=== PATIENT | female | born 1940 | race Caucasian/White ===

== ENCOUNTER 2018-08-16 11:29 | Inpatient (IN) | payer OTHER ==
[~2018-08-16 11:29] MED LIST: TRANEXAMIC ACID 1,000 MG in NS 100 ML IV ONE
[2018-08-16] MEDS ORDERED: BUPIVACAINE 0.25% 30 ML SDV ONE (11:38)
[2018-08-16] MEDS ORDERED: CHLORHEXIDINE GLUC HIBICLENS 118 ML BTL TP ONE (11:38)
[2018-08-16] MEDS ORDERED: THROMBIN (BOVINE) 5,000 UNIT VIAL TP ONE (11:39)
[2018-08-16] MEDS ORDERED: EPINEPHrine 1 MG/ML INJ ONE (11:39)
[2018-08-16] MEDS ORDERED: CITRATE DEXTROSE SOLN 500 ML BAG ONE (11:39)
[2018-08-16] MEDS ORDERED: BACITRACIN 50,000 UNITS/10 ML SYR IRR ONE (11:39)
[2018-08-16] MEDS ORDERED: morphINE PF 0.2 MG in SYRINGE INTRATHECAL 1 SYR IT ONE (11:50)
[2018-08-16] MEDS ORDERED: ACETAMINOPHEN 500 MG TAB PO ONE (11:50)
[2018-08-16] MEDS ORDERED: ceFAZolin 2 GM/DEXTROSE 100 ML IV ONE (11:50)
[2018-08-16] MEDS ORDERED: GABAPENTIN 300 MG CAP PO ONE (11:50)
[2018-08-16] MEDS ORDERED: fentaNYL 50 MCG in SYRINGE INTRATHECAL 1 SYR IT ONE (11:50)
[2018-08-16] MEDS ORDERED: LR 1,000 ML IV ONE (11:56)
[2018-08-16] MEDS ORDERED: LIDOCAINE 1% 2 ML INJ ID PRN (11:56)
--- NOTE | 2018-08-16 12:54 | PDANEPAE ---
ANE History of Present Illness L3-L5 TLIF ANE Past Medical History - Cardiovascular History Hx Hypertension: No Hx Arrhythmias: No Hx Chest Pain: No Hx Coronary Artery / Peripheral Vascular Disease: No Hx CHF / Valvular Disease: No Hx Palpitations: No - Pulmonary History Hx COPD: No Hx Asthma/Reactive Airway Disease: Yes Hx Recent Upper Respiratory Infection: No Hx Oxygen in Use at Home: No Hx Sleep Apnea: No Sleep Apnea Screening Result - Last Documented: Negative Pulmonary History Comment: hasn't used inhaler in a long time- instructed pt to bring to hospital. 08/03- pt called back and has had cough at night so doctor restarted her flovent inhaler, it is added to medication list - Neurologic History Hx Cerebrovascular Accident: No Hx Seizures: No Hx Dementia: No - Endocrine History Hx Diabetes: No Endocrine History Comment: hypothyroidism - Renal History Hx Renal Disorders: Yes Renal History Comment: frequent uti's- last one in march 2018 - Liver History Hx Hepatic Disorders: No - Neurological & Psychiatric Hx Hx Neurological and Psychiatric Disorders: No - Cancer History Hx Cancer: Yes Cancer History Comment: skin - Congenital Disorder History Hx Congenital Disorders: No - GI History Hx Gastrointestinal Disorders: Yes Gastrointestinal History Comment: reflux - Other Health History Other Health History: wears glasses. dental implants. frontal alopecia - Chronic Pain History Chronic Pain: Yes (lower back sciatic pain) - Surgical History Prior Surgeries: sinus surgery 04/2018. bilateral TKA's 10 yrs ago. alvin 2013. moh's surgery 2014. dental implants. breast biopsy ANE Review of Systems Review of Systems: - Exercise capacity METS (RN): 4 METS ANE Patient History - Allergies Allergies/Adverse Reactions: ciprofloxacin Allergy (Verified 07/20/18 10:05) Rash Penicillins Allergy (Verified 07/20/18 10:05) Rash Sulfa (Sulfonamide Antibiotics) Allergy (Verified 07/20/18 10:05) Itching - Home Medications Home Medications: Albuterol [Proventil Inhaler HFA (*)] 1 - 2 puffs IH Q4H PRN 07/20/18 [Last Taken 2 Weeks Ago ~08/02/18] Aspirin [Aspirin 81mg (*)] 81 mg PO DAILY 07/20/18 [Last Taken 08/08/18] Cholecalciferol Vit D3 [Vitamin D3 (*)] 1,000 units PO DAILY 07/20/18 [Last Taken 1 Day Ago ~08/15/18] Fexofenadine HCl [Faviola Allergy] 180 mg PO DAILY 07/20/18 [Last Taken 1 Day Ago ~08/15/18] Herbals/Supplements -Info Only 1 ea PO DAILY 07/20/18 [Last Taken 1 Day Ago ~] Levothyroxine [Synthroid 75 mcg (*)] 75 mcg PO DAILY06 07/20/18 [Last Taken 12/03 04:00] Mirtazapine 7.5 mg PO HS 07/20/18 [Last Taken 1 Day Ago ~08/15/18] Montelukast Sodium [Singulair 10 mg (*)] 10 mg PO HS 07/20/18 [Last Taken 1 Day Ago ~08/15/18] Omeprazole 40 mg PO DAILY 07/20/18 [Last Taken 08/16/18 05:30] Fluticasone Hfa 220 Mcg [Flovent 220 MCG Hfa MDI (*)] 1 puffs IH BID 08/09/18 [ Last Taken 08/16/18 07:30] - NPO status NPO Status: no food or drink >8 hours NPO Since - Liquids (Date): 08/16/18 NPO Since - Liquids (Time): 09:45 NPO Since - Solids (Date): 08/15/18 NPO Since - Solids (Time): 20:00 - Anes Hx Anes Hx: no prior problems - Smoking Hx Smoking Status: Never smoked - Alcohol Use Alcohol Use: None - Family Anes Hx Family Anes Hx: none Family Hx Anesthesia Complications: none ANE Labs/Vital Signs - Vital Signs Blood Pressure: 148/85 Heart Rate: 73 Respiratory Rate: 16 O2 Sat (%): 97 Height: 162.56 cm Weight: 61.235 kg ANE Physical Exam - Airway Neck exam: FROM Mallampati Score: Class 2 Mouth exam: normal dental/mouth exam - Pulmonary Pulmonary: no respiratory distress, clear to auscultation - Cardiovascular Cardiovascular: regular rate and rhythym, no murmur, rub, or gallop - ASA Status ASA Status: III ANE Anesthesia Plan Anesthesia Plan: general endotracheal anesthesia Lines/Monitors: arterial line, additional IV Total IV Anesthesia: Yes
[2018-08-16] MEDS ORDERED: MIDAZOLAM 2 MG/2 ML VIAL IVP ONE (12:55)
[2018-08-16] MEDS ORDERED: PROPOFOL 200 MG/20 ML VIAL ONE (13:22)
[2018-08-16] MEDS ORDERED: PROPOFOL/EMULSION 500 MG/50 ML BOTTLE IV ONE (13:22)
[2018-08-16] MEDS ORDERED: fentaNYL 100 MCG/2 ML INJ ONE ×2 (13:22→17:44)
[2018-08-16] MEDS ORDERED: REMIFENTANIL HCL 1 MG VIAL ONE (13:22)
[2018-08-16] MEDS ORDERED: LIDOCAINE 2% 100 MG/5 ML SYR ONE (13:24)
[2018-08-16] MEDS ORDERED: ROCURONIUM 50 MG/5 ML VIAL ONE (13:24)
--- NOTE | 2018-08-16 14:10 | PDHPUP ---
History & Physical Update H&P update statement: This history and physical update is based on an assessment of the patient which was completed after admission or registration (within 24 hours), but prior to the surgery/procedure. H&P update: H&P reviewed & patient examined, no change in patient's condition since H&P completed
[2018-08-16] MEDS ORDERED: ONDANSETRON 4 MG/2 ML VIAL ONE ×2 (16:22→18:45)
[2018-08-16] MEDS ORDERED: DEXAMETHASONE 4 MG/ML VIAL ONE (16:22)
[2018-08-16] MEDS ORDERED: HYDROmorphONE/DILAUDID 2 MG/ML INJ IVP PRN (17:55)
[2018-08-16] MEDS ORDERED: HYDROCODONE/APAP 5/325 TAB PO PRN (17:55)
[2018-08-16] MEDS ORDERED: fentaNYL 100 MCG/2 ML INJ IVP PRN (17:55)
[2018-08-16] MEDS ORDERED: NALOXONE HCL 0.4 MG/ML INJ IVP PRN ×2 (17:55→17:58)
[2018-08-16] MEDS ORDERED: ONDANSETRON 4 MG/2 ML VIAL IVP PRN ×2 (17:55→17:58)
[2018-08-16] MEDS ORDERED: ACETAMINOPHEN 500 MG TAB PO PRN (17:55)
[2018-08-16] MEDS ORDERED: oxyCODONE IR 5 MG TAB PO PRN (17:55)
--- NOTE | 2018-08-16 17:55 | POSTANESTH ---
Post Anesthetic Evaluation Cardiovascular Status: Normal, Stable, Similar to Pre-Op Cond Respiratory Status: Normal, Stable, Similar to Pre-op Cond. Level of Consciousness/Mental Status: Can Participate in Eval, Alert and Oriented Pain Control: Adequate, Prn Tx Ordered Nausea/Vomiting Control: Adequate, Prn Tx Ordered Complications Possibly Related to Anesthesia: None Noted
[2018-08-16] MEDS ORDERED: ALBUTEROL 60 PUFFS/8 GM MDI IH PRN (17:56)
[2018-08-16] MEDS ORDERED: MAGNESIUM HYDROXIDE 30 ML UDCUP PO PRN (17:58)
[2018-08-16] MEDS ORDERED: morphINE PCA 30 MG/30 ML PCA IV PRN (17:58)
[2018-08-16] MEDS ORDERED: BISACODYL 10 MG SUPP PR PRN (17:58)
[2018-08-16] MEDS ORDERED: LACTULOSE 20 GM/30 ML UDCUP PO PRN (17:58)
[2018-08-16] MEDS ORDERED: diphenhydrAMINE 25 MG CAP PO PRN (17:58)
[2018-08-16] MEDS ORDERED: NS 1,000 ML IV SCH (18:00)
--- NOTE | 2018-08-16 18:04 | SOAPPROG ---
SOAP Progress Note Assessment/Plan: Assessment: 78 yo F sp L3-5 TLIF Plan: stable to 3N LSO Brace in am TAMAR x 1 please call with neuro changes 08/16/18 18:02 Subjective: + back pain, no leg pain Objective: Vital Signs Temp Pulse Resp BP Pulse Ox 36.5 C 73 16 148/85 H 97 08/16/18 12:53 08/16/18 12:55 08/16/18 12:55 08/16/18 12:55 08/16/18 12:55 somnolent PERRL, no facial droop KATE x 4 + light touch C/D/I ICD10 Worksheet Patient Problems: Problems Problem Status Onset Fusion of spine of lumbar region Acute - ICD10 Problem Qualifiers (1) Fusion of spine of lumbar region
--- NOTE | 2018-08-16 18:26 | GOP ---
DATE OF OPERATION: 08/16/2018 SURGEON: Александр West MD NEUROSURGEON: Александр West MD DIRECTOR OF CAREER RESOURCES: ROCIO Byrnes ANESTHESIA: General endotracheal. 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 Intractable low back pain and bilateral lower extremity radicular and ne urogenic claudication symptoms. Failed conservative care. High risk surgical candidate given age of 78, comorbidities, and required surgical intervention. POSTOPERATIVE DIAGNOSIS: Critical spinal stenosis at L3-4 and L4-5 with spondylolisthesis and severe degenerative joint disease. Intractable low back pain and bilateral lower extremity radicular and n eurogenic claudication symptoms. Failed conservative care. High risk surgical candidate given age o f 78, comorbidities, and required surgical intervention. PROCEDURE PERFORMED: 1. Left-sided L3-4 and L4-5 far lateral transpedicular decompression with L3 through L5 posterior se gmental (pedicle screw and axle device) fixation and posterolateral fusion with local autograft, bone morphogenic protein, and morselized allograft. 2. L3-4 and L4-5 posterior/transforaminal lumbar interbody fusion with 2 structural PEEK interbody s pacers, with local autograft, bone morphogenic protein, and morselized allograft. 3. Use of intraoperative microscopy fluoroscopy and computer volumetric stereotactic navigation with intraoperative neurophysiologic testing. 4. Injection of intrathecal narcotic analgesics and subcutaneous and intramuscular local anesthesia for postoperative pain control. FINDINGS: ESTIMATED BLOOD LOSS: 250 cc. INDICATIONS: The patient is a 78-year-old woman with intractable low back pain and bilateral lower e xtremity radicular and neurogenic claudication symptoms, secondary to severe multilevel degenerative joint disease with critical spinal stenosis. The patient has failed extensive conservative care and presents now for surgical decompression and stabilization through a mini open approach. DESCRIPTION OF PROCEDURE: After informed consent was obtained, the patient was positioned prone on t [facility] table. The lumbosacral area was prepped and draped in a sterile fashion. After fluorosco pic localization of the correct level, the subcutaneous and intramuscular tissues were infiltrated wi th local anesthesia. A midline linear incision was then created over the L3 through 5 spinous processes. This was carried down to the fascial layer, which was then incised using the monopolar electrocautery and carried in a subperiosteal plane along the spinous processes and lamina bilaterally. Intraoperative fluoroscopy was again utilized to verify the correct levels. Following this, dissection was carried out over the facet joints. The microscope was then brought in and a left-sided far lateral transpedicular decompressions were performed at the L3-4 and L4-5 level s with complete unroofing of the facet joints and neural foramina, as well as the central canal. The re was an extensive amount of very severe/critical spinal stenosis that was thoroughly decompressed, along with the lateral recess and foramen. Following adequate decompression, the Fliiby Neuronavigational System was brought in and using compu ter volumetric stereotactic navigation, pedicle screws were placed at L3, L4, and L5 bilaterally. Ea ch individual screw was tested neurophysiologically with monopolar electrostimulation and interpretat ion of the potentials by the surgeon. The bone screw interfaces were very weak and I felt that it was in the best interest of the patient t o reinforce the construct with axle devices after placing the rest of the rods and securing the syste m. After fluoroscopic verification of good position of the screws and intraoperative neurophysiologi c testing, serial distraction was created first across L3-4, then across L4-5 during which time compl ete diskectomies were performed with preparation of the endplates and placement of 2 structural PEEK interbody spacers with local autograft, bone morphogenic protein and morselized allograft at each lev el for L3-4 and L4-5 posterior/transforaminal lumbar interbody fusions. The small rods were then rem jose antonio and longer 70 mm rods placed extending the entire construct with maximal lordosis in order to pr event flat back syndrome. A slight amount of compression was created across the interspaces in order to minimize the potential for posterior graft migration and to encourage bony fusion across the inte rspace. Following this, axial devices were placed and the wound was copiously irrigated with antibiotic irrig ation and meticulous hemostasis was achieved. 200 mcg of Duramorph, along with 50 mcg of fentanyl we re injected intrathecally for postoperative pain control. The remaining lamina and facet joints on t he right were then extensively decorticated and the residual local autograft, along with bone morphog enic protein and morselized allograft was placed out laterally for posterolateral fusion from L3-L5. A drain was then placed. The subcutaneous and intramuscular tissues were re-infiltrated with local anesthesia. Two axial devices were placed, and the wound was closed in a layered fashion using inter rupted Vicryl sutures, followed by Steri-Strips on the skin. COMPLICATIONS: None. DISPOSITION: The patient is currently in the process of being repositioned for extubation. /[id number]/MODL
[2018-08-16] MEDS: FLUTICASONE HFA 220 MCG MDI IH SCH (21:20)
[2018-08-16] MEDS: MONTELUKAST SODIUM 10 MG TAB PO SCH (21:31)
[2018-08-16] MEDS: MIRTAZAPINE 15 MG TAB PO SCH (21:31)
[2018-08-16] MEDS: ceFAZolin 2 GM/DEXTROSE 100 ML IV SCH (21:31)
[2018-08-16] MEDS: FAMOTIDINE 20 MG TAB PO SCH (21:33)
[2018-08-16] MEDS: SENNOSIDES/DOCUSATE SODIUM TAB PO SCH (21:36)
[2018-08-16] MEDS: morphINE SR 15 MG TAB PO SCH ×2 (21:37→21:50)
[2018-08-16] MEDS: POLYETHYLENE GLYCOL 3350 17 GM PKT PO SCH (21:45)
[2018-08-16] MEDS: METHOCARBAMOL 750 MG TAB PO PRN (21:51)
[2018-08-17 04:26] LABS: PLATELET COUNT 204 10^3/uL (150-400)
[2018-08-17] MEDS: ceFAZolin 2 GM/DEXTROSE 100 ML IV SCH (05:29)
[2018-08-17] MEDS: LEVOTHYROXINE 75 MCG TAB PO SCH (05:30)
[2018-08-17] MEDS: oxyCODONE IR 5 MG TAB PO PRN ×3 (05:30→21:24)
[2018-08-17] MEDS: PANTOPRAZOLE SODIUM 40 MG TAB PO SCH (07:09)
--- NOTE | 2018-08-17 07:57 | NEUSURGPN ---
Date of Surgery: 08/16/18 Post Op Day: 1 Assessment/Plan: Assessment: 78 yo F s/p L3-5 TLIF POD #1 Plan: -s/p TLIF L3-L5: pt with expected lower back pain, legs feel better from prior to surgery -PT/OT pending -TAMAR in place and still productive -neuro stable -brace when out of bed -post op xrays pending -Lovenox ordered to start today per report -d/w Dr Sal -call with any questions or concerns -pt understands and agrees Subjective: Awake and alert. NAD. Eating/drinking and voiding. No f/c/v/d. No nelson/neck/ chest/abd or gu complaints. Pt with some mild nausea after pain meds-RN to give zofran as ordered already Objective: AAO, PERRLA, EOMI no facial droop CN 2-12 grossly intact KATE x 4 + light touch C/D/I TAMAR in place Neuro Check Frequency: per routine Urinary Catheter in Place: No Catheter Insertion Date: 08/16/18 - Physician Discussed Patient with : Brett Neurosurgery Physical Exam - Vitals, I&O, Labs I and O 08/16/18 08/17/18 08/18/18 05:59 05:59 05:59 Intake Total 1000 700 Output Total 3120 Balance -2120 700 Weight 61.235 kg Intake: Oral (ml) 500 IV Intake (ml) 500 IV Infused (ml) 500 200 Lr 1,000 ml @ As Directed 500 IV ONCE ONE Rx#: [id number] ceFAZolin 2 GM/DEXTROSE 200 100 ml @ 200 mls/hr IV Q8HRS JOSE Rx#:[id number] Output: Urine (ml) 3000 Catheter 3000 TAMAR Drain Output (ml) 120 Back Cesar Adair 120 Other: Number of Voids Catheter 1 Vital Signs Temp Pulse Resp BP Pulse Ox 36.8 C 70 15 90/51 L 93 08/17/18 03:11 08/17/18 03:11 08/17/18 03:11 08/17/18 03:11 08/17/18 03:11 Laboratory Results 08/17/18 04:04 08/17/18 04:04 ICD10 Worksheet Patient Problems: Problems Problem Status Onset Fusion of spine of lumbar region Acute
[2018-08-17] MEDS: FLUTICASONE HFA 220 MCG MDI IH SCH ×3 (09:43→22:58)
--- NOTE | 2018-08-17 10:11 | PDMN ---
Medical Necessity Medical necessity: 78 yo s/p CPT 14263 Lumbar Fusion, MCG S820, MC IP Only, L3/ 4 L4/5, TLIF Lum Jose Fusion w/ Stealth
[2018-08-17] MEDS: ENOXAPARIN 40 MG/0.4 ML SYR SC SCH (10:34)
[2018-08-17] MEDS: CETIRIZINE 10 MG TAB PO SCH (14:00)
[2018-08-17] MEDS: FAMOTIDINE 20 MG TAB PO SCH ×2 (14:00→21:21)
[2018-08-17] MEDS: morphINE SR 15 MG TAB PO SCH ×2 (14:04→19:45)
[2018-08-17] MEDS: SENNOSIDES/DOCUSATE SODIUM TAB PO SCH ×2 (14:04→21:20)
[2018-08-17] MEDS: POLYETHYLENE GLYCOL 3350 17 GM PKT PO SCH ×3 (14:04→19:58)
--- NOTE | 2018-08-17 14:33 | ASMTCMCOM ---
CM Note CM Note Notes: Pt had planned surgery, resides with spouse. PT rec home, OT rec home/C. Pt pre-arranged by MD office with Michael [facility]IN[facility], Della met with pt today. No orders needed as Michael has MD protocol. D/c plan of care: Home with Michael Date Signed: 08/17/2018 02:33 PM Electronically Signed By:RICH Somers
[2018-08-17] MEDS: ACETAMINOPHEN 500 MG TAB PO PRN (14:55)
[2018-08-17] MEDS: ONDANSETRON DISINTEGRATING 4 MG TAB PO PRN (18:52)
[2018-08-17] MEDS: METHOCARBAMOL 750 MG TAB PO PRN (21:19)
[2018-08-17] MEDS: MIRTAZAPINE 15 MG TAB PO SCH (21:19)
[2018-08-17] MEDS: MONTELUKAST SODIUM 10 MG TAB PO SCH (21:21)
[2018-08-18] MEDS: METHOCARBAMOL 750 MG TAB PO PRN ×3 (05:45→22:17)
[2018-08-18] MEDS: LEVOTHYROXINE 75 MCG TAB PO SCH (05:45)
[2018-08-18] MEDS: oxyCODONE IR 5 MG TAB PO PRN ×4 (05:45→19:04)
[2018-08-18] MEDS: CETIRIZINE 10 MG TAB PO SCH (08:08)
[2018-08-18] MEDS: ENOXAPARIN 40 MG/0.4 ML SYR SC SCH (08:09)
[2018-08-18] MEDS: FAMOTIDINE 20 MG TAB PO SCH ×2 (08:09→22:06)
[2018-08-18] MEDS: POLYETHYLENE GLYCOL 3350 17 GM PKT PO SCH ×3 (08:10→22:05)
[2018-08-18] MEDS: SENNOSIDES/DOCUSATE SODIUM TAB PO SCH ×2 (08:11→22:05)
[2018-08-18] MEDS: ACETAMINOPHEN 500 MG TAB PO PRN (08:11)
[2018-08-18] MEDS: morphINE SR 15 MG TAB PO SCH ×2 (08:12→22:05)
[2018-08-18] MEDS: PANTOPRAZOLE SODIUM 40 MG TAB PO SCH (08:12)
--- NOTE | 2018-08-18 08:31 | SOAPPROG ---
SOAP Progress Note Assessment/Plan: Assessment: 78 yo F POD #2 L3-5 TLIF Plan: stable and doing well overall post op x-rays still pending LSO brace when out of bed PT/OT scd/aidan/lovenox for dvt prophylaxis TAMAR x 1 please call with neuro changes 08/16/18 18:02 08/18/18 08:27 08/18/18 08:32 Subjective: continued back pain, no leg pain, no weakness. Objective: Vital Signs Temp Pulse Resp BP Pulse Ox 36.8 C 91 14 90/63 L 91 L 08/18/18 07:23 08/18/18 07:23 08/18/18 07:23 08/18/18 07:23 08/18/18 07:23 Laboratory Results 08/17/18 04:04 08/17/18 04:04 08/17/18 08/18/18 08/19/18 05:59 05:59 05:59 Intake Total 1000 2700 Output Total 3120 1430 Balance -2120 1270 AAOx4, +FC PERRL, EOMI, no facial droop 5/5 + light touch C/D/I ICD10 Worksheet Patient Problems: Problems Problem Status Onset Fusion of spine of lumbar region Acute - ICD10 Problem Qualifiers (1) Fusion of spine of lumbar region
[2018-08-18] MEDS ORDERED: DIAZEPAM 5 MG TAB PO PRN (08:33)
[2018-08-18] MEDS: FLUTICASONE HFA 220 MCG MDI IH SCH ×2 (08:54→19:52)
[2018-08-18] MEDS: MIRTAZAPINE 15 MG TAB PO SCH (22:05)
[2018-08-18] MEDS: MONTELUKAST SODIUM 10 MG TAB PO SCH (22:06)
[2018-08-19] MEDS: LEVOTHYROXINE 75 MCG TAB PO SCH (05:17)
[2018-08-19] MEDS: oxyCODONE IR 5 MG TAB PO PRN ×3 (05:17→16:32)
--- NOTE | 2018-08-19 07:26 | SOAPPROG ---
SOAP Progress Note Assessment/Plan: Assessment: 78 yo female POD #3 sp L3-L5 TLIF Doing well. Preop symptoms improved Plan: PT/OT today DC home with TAMAR in place 08/19/18 07:23 Subjective: awake, alert, comfortable. States her preoperative symptoms have improved. No new numbness, tingling or weakness Objective: Vital Signs Temp Pulse Resp BP Pulse Ox 36.8 C 79 16 111/60 91 L 08/18/18 23:43 08/18/18 23:43 08/18/18 23:43 08/18/18 23:43 08/18/18 23:43 Laboratory Results 08/17/18 04:04 08/17/18 04:04 08/18/18 08/19/18 08/20/18 05:59 05:59 05:59 Intake Total 2700 250 Output Total 1430 145 Balance 1270 105 Neuro: A+Ox4 follows commands UNGER, Sens +LT, ambulatory Dressing: CDI TAMAR: 145ml ICD10 Worksheet Patient Problems: Problems Problem Status Onset Fusion of spine of lumbar region Acute
[2018-08-19] MEDS: SENNOSIDES/DOCUSATE SODIUM TAB PO SCH ×2 (08:25→22:27)
[2018-08-19] MEDS: FAMOTIDINE 20 MG TAB PO SCH ×2 (08:26→22:25)
[2018-08-19] MEDS: CETIRIZINE 10 MG TAB PO SCH (08:26)
[2018-08-19] MEDS: METHOCARBAMOL 750 MG TAB PO PRN ×2 (08:26→22:47)
[2018-08-19] MEDS: PANTOPRAZOLE SODIUM 40 MG TAB PO SCH (08:26)
[2018-08-19] MEDS: ENOXAPARIN 40 MG/0.4 ML SYR SC SCH (08:28)
[2018-08-19] MEDS: POLYETHYLENE GLYCOL 3350 17 GM PKT PO SCH ×3 (08:28→22:27)
[2018-08-19] MEDS: morphINE SR 15 MG TAB PO SCH (08:32)
[2018-08-19] MEDS: ONDANSETRON DISINTEGRATING 4 MG TAB PO PRN ×2 (08:36→13:00)
[2018-08-19] MEDS: FLUTICASONE HFA 220 MCG MDI IH SCH ×2 (09:48→21:18)
--- NOTE | 2018-08-19 10:33 | ASMTLACE ---
LACE Length of stay for Answers: 4-6 days current admission Acuity / Level of Answers: Yes Care: Did the patient have an inpatient admission? Comorbidities - select Answers: Opioid dependence all that apply / Chronic pain Other Notes: Hypothyroid # of Emergency department Answers: 0 visits in the last 6 months Score: 12 Date Signed: 08/19/2018 10:33 AM Electronically Signed By:RICH Somers
--- NOTE | 2018-08-19 10:34 | ASMTCMCOM ---
CM Note CM Note Notes: Pt medically stable for d/c with [facility]. No orders needed since [facility] has MD protocol. Date Signed: 08/19/2018 10:34 AM Electronically Signed By:RICH Somers
--- NOTE | 2018-08-19 10:47 | PDIAF ---
- Diagnosis Code Status: Full Code - Medication Management Discharge Medications: Medications to Continue on Transfer Albuterol [Proventil Inhaler HFA (*)] 1 - 2 puffs IH Q4H PRN 07/20/18 [Last Taken 2 Weeks Ago ~08/02/18] Cholecalciferol Vit D3 [Vitamin D3 (*)] 1,000 units PO DAILY 07/20/18 [Last Taken 1 Day Ago ~08/15/18] Fexofenadine HCl [Faviola Allergy] 180 mg PO DAILY 07/20/18 [Last Taken 1 Day Ago ~08/15/18] Herbals/Supplements -Info Only 1 ea PO DAILY 07/20/18 [Last Taken 1 Day Ago ~] Levothyroxine [Synthroid 75 mcg (*)] 75 mcg PO DAILY06 07/20/18 [Last Taken 12/03 04:00] Mirtazapine 7.5 mg PO HS 07/20/18 [Last Taken 1 Day Ago ~08/15/18] Montelukast Sodium [Singulair 10 mg (*)] 10 mg PO HS 07/20/18 [Last Taken 1 Day Ago ~08/15/18] Omeprazole 40 mg PO DAILY 07/20/18 [Last Taken 08/16/18 05:30] Fluticasone Hfa 220 Mcg [Flovent 220 MCG Hfa MDI (*)] 1 puffs IH BID 08/09/18 [ Last Taken 08/16/18 07:30] Acetaminophen [Tylenol ES 500 mg (*)] 500 - 1,000 mg PO Q8 PRN tab 08/19/18 [ Last Taken Unknown] Methocarbamol [Robaxin 750 mg (*)] 750 mg PO QID PRN #60 tab 08/19/18 [Last Taken Unknown] Polyethylene Glycol 3350 [Miralax 17 gm (*)] 17 gm PO TID pkt 08/19/18 [Last Taken Unknown] Sennosides/Docusate Sodium [Senokot-S] 1 - 2 tab PO BID tab 08/19/18 [Last Taken Unknown] oxyCODONE IR [Oxycodone Ir (*)] 5 - 10 mg PO Q4HRS PRN #60 tab 08/19/18 [Last Taken Unknown] Discharge Medications: Refer to the Discharge Home Medication list for PRN reason. - Orders Services needed: Home Care, Registered Nurse, Physical Therapy, Occupational Therapy Home Care Face to Face: I certify that this patient was under my care and that I had the required [id number] encounter meeting the encounter requirements on the discharge day. My findings support the fact that the patient is homebound as defined in Home Care Face to Face Continued: CMS Chapter 7 Medicare Benefits Manual 30.1.1 , The condition of the patient is such that there exists a normal inability to leave home and consequently, leaving home would require a considerable and taxing effort. Diet Recommendation: no restrictions on diet Diet Texture: Regular Texture Diet Green: Not applicable Wound Care Instructions: Check incision daily and notify Dr. West of any drainage, redness or increasing pain Activity/Weight Bearing Restrictions: no bending, twisting or lifting over 10 lbs x 6 weeks. Wear LSO when out of bed Equipment: LSO brace. Additional Instructions: No bending, twisting or lifting over 10 lbs x 6 weeks Wear brace when out of bed Call office Thursday for further instructions regarding TAMAR drain, or with any questions, concerns - Follow Up Care Current Providers and Referrals: AUGUSTA CASTANEDA MD [Other]
--- NOTE | 2018-08-19 13:44 | PDHOMEO2F ---
Home Oxygen Face to Face Home Orders: I certify that a physician or a nurse practitioner or physician's assistant professor surgical technology has had a [id number] encounter with this patient on the date of this order due to the diagnosis listed, which relates to the primary reason the patient requires home oxygen. Alternative treatments have been tried, or considered, and deemed ineffective. It is anticipated that supplemental oxygen will result in improvement with treatment. Home oxygen qualifying diagnosis: Post operative hypoxemia SpO2 on room air (%): 82 Frequency of home oxygen needed: with activity, continuous Home oxygen liters per minute: 2 Home oxygen delivery device: nasal cannula Concentrator: Yes E-tanks for mobility and back up: Yes If ordering portable O2, is the patient mobile in the home?: Yes I certify that, based on these findings, the home oxygen is medically necessary for this patient for the following length of time. Length of time home oxygen needed: 1 month (follow up with PCP in 2 weeks)
[2018-08-19] MEDS: MIRTAZAPINE 15 MG TAB PO SCH (22:26)
[2018-08-19] MEDS: MONTELUKAST SODIUM 10 MG TAB PO SCH (22:32)
[2018-08-20] MEDS: LEVOTHYROXINE 75 MCG TAB PO SCH (05:44)
[2018-08-20] MEDS: ACETAMINOPHEN 500 MG TAB PO PRN ×2 (05:59→12:09)
[2018-08-20 07:17] VITALS: BP 114/70
[2018-08-20] MEDS: ENOXAPARIN 40 MG/0.4 ML SYR SC SCH (07:44)
[2018-08-20] MEDS: METHOCARBAMOL 750 MG TAB PO PRN ×2 (07:45→12:11)
[2018-08-20] MEDS: PANTOPRAZOLE SODIUM 40 MG TAB PO SCH (07:45)
[2018-08-20] MEDS: FAMOTIDINE 20 MG TAB PO SCH (07:45)
[2018-08-20] MEDS: CETIRIZINE 10 MG TAB PO SCH (07:45)
[2018-08-20] MEDS: FLUTICASONE HFA 220 MCG MDI IH SCH (07:48)
--- NOTE | 2018-08-20 08:21 | NEUSURGPN ---
Assessment/Plan: 78 yo female POD #4 sp L3-L5 TLIF Doing well. Preop symptoms improved Plan: DC TAMAR drain PT/OT today Pain management DC to home today Call NS with any issues Pt seen and d/w Dr Sal Subjective: Pt resting in bedside chair, eager to go home today Objective: AAOx3 NAD VSS MAEx4 Motor 5/5 BLE brace on JPx1 Urinary Catheter in Place: No Catheter Insertion Date: 08/16/18 - Physician Discussed Patient with : Brett Patient Seen by : Brett Neurosurgery Physical Exam - Vitals, I&O, Labs I and O 08/19/18 08/20/18 08/21/18 05:59 05:59 05:59 Intake Total 250 550 Output Total 145 1000 20 Balance 105 -450 -20 Intake: Oral (ml) 250 550 Output: Urine (ml) 1000 Bedside Commode 200 Toilet 800 TAMAR Drain Output (ml) 145 20 Back Cesar Adair 145 20 Other: Intake Quantity Yes Sufficient Number of Voids Bedside Commode 1 Toilet 2 1 Number of Stools Bedside Commode 1 Toilet 1 Vital Signs Temp Pulse Resp BP Pulse Ox 36.9 C 85 16 114/70 92 08/20/18 07:16 08/20/18 07:16 08/20/18 07:16 08/20/18 07:16 08/20/18 07:16 Laboratory Results 08/17/18 04:04 08/17/18 04:04 ICD10 Worksheet Patient Problems: Problems Problem Status Onset Fusion of spine of lumbar region Acute
[2018-08-20] MEDS: POLYETHYLENE GLYCOL 3350 17 GM PKT PO SCH (10:26)
[2018-08-20] MEDS: SENNOSIDES/DOCUSATE SODIUM TAB PO SCH (10:26)
--- NOTE | 2018-08-20 14:08 | ASMTCMCOM ---
CM Note CM Note Notes: Pt did not d/c yesterday, did d/c today and [facility] updated. Date Signed: 08/20/2018 02:07 PM Electronically Signed By:RICH Somers
--- NOTE | 2018-08-20 14:09 | ASDISCHSUM ---
Discharge Information Plan Status:Home with Home Health Medically Cleared to Leave: Discharge Date:08/20/2018 12:59 PM CM D/C Disposition:Home Health Service ADT D/C Disposition:Home, Routine, Self-Care Projected Discharge Date:08/18/2018 11:00 AM Transportation at D/C: Discharge Delay Reason: Follow-Up Date:08/18/2018 11:00 AM Discharge Slot: Final Diagnosis: Placement Information Referral Type:*Home Health Care Services Referral ID:[id number] Provider Name:[facility] ([facility]) Address 1:[address] [address] Address 2: City:[place] Selection Factors: State:[place] Patient Contact Information Contact Name:JOHNNIE Relationship: Address:[address] Home Phone: City:[place] Alternate Phone: State/Zip Code:[place] [address] Email: Financial Information Financial Class:Medicare Primary Plan Desc:MEDICARE INPATIENT Primary Plan Number:[id number] Secondary Plan Desc:DEANGELO TATE PPO Secondary Plan Number:[id number] Assessment Information LACE LACE Length of stay for Answers: 4-6 days current admission Acuity / Level of Answers: Yes Care: Did the patient have an inpatient admission? Comorbidities - select Answers: Opioid dependence all that apply / Chronic pain Other Notes: Hypothyroid # of Emergency department Answers: 0 visits in the last 6 months Score: 12 Date Signed: 08/19/2018 10:33 AM Electronically Signed By:RICH Somers LEA CM Progress Note CM Note CM Note Notes: Pt had planned surgery, resides with spouse. PT rec home, OT rec home/[facility]. Pt pre-arranged by MD office with [facility], Della met with pt today. No orders needed as [facility] has protocol. D/c plan of care: Home with [facility] Date Signed: 08/17/2018 02:33 PM Electronically Signed By:RICH Somers [facility] CM Progress Note CM Note CM Note Notes: Pt medically stable for d/c with [facility]. No orders needed since [facility] has protocol. Date Signed: 08/19/2018 10:34 AM Electronically Signed By:RICH Somers [facility] CM Progress Note CM Note CM Note Notes: Pt did not d/c yesterday, did d/c today and [facility] updated. Date Signed: 08/20/2018 02:07 PM Electronically Signed By:RICH Somers Intervention Information Intervention Type:*IM-Signed Date of Service:08/19/2018 10:26 AM Patient Type:Inpatient Staff Member:Liat Herrera Hours: Discipline: Severity: Comment: Intervention Type:*IM-Signed Date of Service:08/20/2018 01:14 PM Patient Type:Inpatient Staff Member:Faith Lang Hours: Discipline: Severity: Comment:
--- NOTE | 2018-08-25 12:38 | GDS ---
ADMISSION DIAGNOSIS: Lumbar degenerative joint disease. DISCHARGE DIAGNOSIS: Status post L3-4, L4-5 transforaminal lumbar interbody fusion. HISTORY/PHYSICAL: Please see admission history and physical course. HOSPITAL COURSE: Patient is a 78-year-old female who presented with low back pain, lower extremity r adicular symptoms. She was taken to the operating room on 08/16/2018, where she underwent an L3-4 an d L4-5 transforaminal lumbar interbody fusion. There were no intraoperative complications and she wa s admitted to the floor for observation. On the floor, she was tolerating a regular diet and her mayank n was controlled with p.o. pain medications. She was discharged home in stable condition with home [facility] care on 08/20/2018. Patient was discharged with lumbar fusion instructions and recommended she return for neurosurgical followup appointment in 10-14 days. /[id number]/MODL
== END 2018-08-20 12:59 | disposition home or self-care (01) | DRG 460 ==
LOC: F3N 11:29
PROVIDERS: ADMIT Neurological Surgery; ATTEND Neurological Surgery
PROC: 3E0U0GB Introduction of Recombinant Bone Morphogenetic Protein into Joints, Open Approach (ICD-10-PCS; principal; 2018-08-16 13:30)
PROC: 0SG10AJ Fusion of 2 or more Lumbar Vertebral Joints with Interbody Fusion Device, Posterior Approach, Anterior Column, Open Approach (ICD-10-PCS; principal; 2018-08-16 13:30)
PROC: 01NB0ZZ Release Lumbar Nerve, Open Approach (ICD-10-PCS; principal; 2018-08-16 13:30)
DX: M43.16 Spondylolisthesis, lumbar region (principal); M51.16 Intervertebral disc disorders with radiculopathy, lumbar region; M48.062 Spinal stenosis, lumbar region with neurogenic claudication
CPT/HCPCS: 97116-GP; 97161-GP; 97166-GO; 97530-GO; 97530-GP; 97535-GO; C1713; C1762; G8978-GP-CJ; G8979-GP-CI; G8980-GP-CI; G8987-GO-CI; G8987-GO-CK; G8988-GO-CI; G8989-GO-CI; J0171; J0690; J1100; J1650; J2001; J2250; J2270; J2274; J2405; J2704; J3010; J7060